=== PATIENT | male | born 1975 | race Caucasian/White ===

== ENCOUNTER 2020-06-19 21:17 | Emergency (ER) | payer OTHER ==
--- OUTSIDE RECORDS SUMMARY | 2020-06-19 21:21 | XMS REPORT ---
:1975 Author Organization [facility] Address [address] [place] [address] Care Team Providers Name Role Phone Grace Unavailable [phone] PROBLEMS Type Condition ICD9-CM CDZ37-OV Onset Condition SNOMED Code Notes Code Code Dates Status Problem Fever, unspecified R50.9 Active 039685676 fever cause Problem Bipolar depression F31.9 Active 981475026 Problem History of kidney Z87.442 Active 651443385 stones Problem Essential hypertension I10 Active 17105811 Problem Gastroesophageal reflux K21.9 Active 72865868 9 disease, esophagitis presence not specified Problem Periodontal disease K05.6 Active 5937760 Problem Unrefreshed by sleep G47.8 Active 934202652 Problem Attention deficit F98.8 Active 098853003 disorder, unspecified hyperactivity presence Problem Pure E78.00 Active 680601317 hypercholesterolemia Problem Depression with anxiety F41.8 Active 39987577 6 Problem GORDO (obstructive sleep G47.33 Active 19259306 apnea) Problem Anxiety F41.9 Active 95250092 ALLERGIES Allergen (clinical Drug/Non Drug Reaction Allergy Type Onset Date S tatus drug ingredient) Allergy documented on EMR PCN anaphylaxis Drug Allergy Inactive ENCOUNTERS from 1975 to 2020-04-27 Encounter Location Date Provider Diagnosis [facility] [address] 12 Apr, 2020 Marga [facility] [address] IMMUNIZATIONS No Information SOCIAL HISTORY Tobacco Use: Social History Observation Description Date Details (start date - stop date) Current Smoker Sex Assigned At : Social History Observation Description Sex Assigned At Unknown Alcohol Screen Question Answer Notes Did you have a drink containing alcohol in the past Yes year? Points 1 Interpretation Negative How often did you have a drink containing alcohol in Monthly or less (1 point) the past year? Tobacco Use/Smoking Question Answer Notes Are you a current smoker Tobacco use other than smoking: Question Answer Notes Are you an other tobacco user? Yes REASON FOR REFERRAL No Information VITAL SIGNS No information MEDICATIONS Medication SIG (Take, Route, Start Date End Date Status Frequency, Duration) HydrOXYzine HCl 50 MG 1 tablet as needed Orally May, Active every 8 hrs for 90 days Lisinopril 20 MG 1 tablet Orally Twice a day May, Active for 90 days Omeprazole 40 MG 1 capsule 30 minutes before Aug, Active morning meal Orally Once a day for 90 days BuPROPion HCl ER (XL) 300 MG take 1 tablet by mouth Active every day Oral Once a day for 90 days PROCEDURES No Information RESULTS No Results REASON FOR VISIT Med change MEDICAL (GENERAL) HISTORY Type Description Date Medical History Essential hypertension Medical History Attention deficit disorder, unspecified hyperactivity presence Medical History Depression with anxiety Medical History History of kidney stones Surgical History No Surgical history information Goals Section No Information Health Concerns No Information MEDICAL EQUIPMENT No Information MENTAL STATUS No Information FUNCTIONAL STATUS No Information ASSESSMENTS No Information PLAN OF TREATMENT Medication Medication Name Sig Start Date Stop Date HydrOXYzine HCl 50 MG 1 tablet as needed Orally every 8 May, hrs for 90 days Omeprazole 40 MG 1 capsule 30 minutes before Aug, morning meal Orally Once a day for 90 days BuPROPion HCl ER (XL) 300 MG take 1 tablet by mouth every day Oral Once a day for 90 days Lisinopril 20 MG 1 tablet Orally Twice a day for May, 90 days Insurance Providers Payer Name Payer Payer Insured Patient Coverage Coverage Address Phone Name Relationship to Start Date End Date Insured MEDICAID [phone] Paul Shin [place] [id number] [facility] [address] [place] [phone] Paul Shin [place] [id number] [address] [facility] [phone]
--- OUTSIDE RECORDS SUMMARY | 2020-06-19 21:21 | XMS REPORT | Summary of Care ---
:1975 Author Organization [facility] Address [address] [place] [address] Care Team Providers Name Role Phone Marga Edwards Primary Care Provider Reason for Visit Reason Comments New Patient cyst (Routine) Status Reason Specialty Diagnoses / Referred By Referred To Procedures Contact Contact Authorized CRISTIAN-SURGERY / Diagnoses Skin lesion of right arm Lesion of skin of scalp Marga Edwards, James Procedures CONSULT/REFERRAL GENERAL SURGERY [address] [place] [address] MD Gia KURT [address] [place] [address] Phone: Carolyne Hardy [phone] Fax: Encounter Details Date Type Department Care Team Description 04/28/2020 Office Visit [facility] General Gia Trujillo Ski n lesion of left upper extremity (Primary Dx); Surgery- [facility] Sebaceous cyst [address] [facility] [address] [place] [address] [address] [place], [place] [address] [address] [place], [place] [phone] [address] Allergies Active Allergy Reactions Severity Noted Date Comments Penicillins Anaphylaxis 04/28/2020 documented as of this encounter (statuses as of 04/29/2020) Medications Medication Sig Dispensed Refills Start Date End Date Status hydrOXYzine 50 mg tablet 0 04/20/2020 Active buPROPion XL 300 mg 24 hr tablet 0 020 Active omeprazole 40 mg capsule 0 04/20/2020 Active documented as of this encounter (statuses as of 04/29/2020) Active Problems No known active problemsdocumented as of this encounter (statuses as of 04/29/2020) Social History Tobacco Use Types Packs/Day Years Used Date Never Assessed Sex Assigned at Date Recorded Not on file COVID-19 Exposure Response Date Recorded In the last month, have you been in contact with No / Unsure 04/28/2020 3:44 PM CDT someone who was confirmed or suspected to have Coronavirus / COVID-19? documented as of this encounter Last Filed Vital Signs Vital Sign Reading Time Taken Comments Blood Pressure 160/97 04/28/2020 3:53 PM CDT Pulse 80 04/28/2020 3:53 PM CDT Temperature 36.8 C (98.3 F) 04/28/2020 3:53 PM CDT Respiratory Rate 20 04/28/2020 3:45 PM CDT Oxygen Saturation 98% 04/28/2020 3:45 PM CDT Inhaled Oxygen Concentration - - Weight 126.6 kg (279 lb) 04/28/2020 3:45 PM CDT Height 172.7 cm (5' 8") 04/28/2020 3:45 PM CDT Body Mass Index 42.42 04/28/2020 3:45 PM CDT documented in this encounter Progress Notes Elli Bernabe, - 04/28/2020 4:00 PM CDT [facility] Surgery Clinic Note Chief Complaint: Cysts on head & back HPI: Paul Shin is a 44 year old male with PMH of HTN, ADHD, anxiety & GERD presenting to the clinicfor one mass on his head, one mass on the posterior aspect of his left neck & one mass on the left aspect of the back for at least 5 years. Patient states that they have gradually gotten bigger over the years. Patient denies any pain, trauma, drainage or signs of infection. Patient also has a lesion on the anterior aspect of his left shoulder. REVIEW OF SYSTEMS (-)=Negative,(+)=Positive Constitutional: negative Skin: Denies erythema, pruritus, drainage, pain HEENT: negative Cardio: negative Resp:negative GI: negative : negative ZOHAIB: negative Neuro: negative Psych: negative Hem/Lymphatic: negative Past Medical History: HTN ADHD Anxiety GERD Nystagmus Astigmatism Past Surgical History: No past surgical history on file. Family History: Lung cancer -- Mother diagnosed at age 55 Social History: Social History Socioeconomic History Marital status: Spouse name: Not on file Number of children: Not on file Years of education: Not on file Highest education level: Not on file Occupational History Not on file Social Needs Financial resource strain: Not on file Food insecurity Worry: Not on file Inability: Not on file Transportation needs Medical: Not on file Non-medical: Not on file Tobacco Use Smoking status: Not on file Substance and Sexual Activity Alcohol use: Not on file Drug use: Not on file Sexual activity: Not on file Lifestyle Physical activity Days per week: Not on file Minutes per session: Not on file Stress: Not on file Relationships Social connections Talks on phone: Not on file Gets together: Not on file Attends synagogue service: Not on file Active member of club or organization: Not on file Attends meetings of clubs or organizations: Not on file Relationship status: Not on file Intimate partner violence Fear of current or ex partner: Not on file Emotionally abused: Not on file Physically abused: Not on file Forced sexual activity: Not on file Other Topics Concern Not on file Social History Narrative Not on file Medications: Bupropion XL 300mg QD Lisinopril 20mg BID Omeprazole Hydroxyzine PRN Allergy: Allergies Allergen Reactions Pcn [Penicillins] Anaphylaxis Physical Exam: Temp: [36.7 C (98.1 F)] Pulse: [95] Resp: [20] BP: (158)/(107) Constitutional: Well developed, no acute distress General: A & O x 3 to person, place and situation HEENT: no scleral icterus, moist mucous membranes Respiratory: clear to auscultation bilaterally Cardio: regular rate and rhythm Abdomen: soft, ND Extremities: DP and PT pulses 3+ bilaterally. No edema. Skin: no rashes, one 2.5cm x 2.0cm mass noted on head, one 1.0cm x 0.5cm mass noted on posterior aspect of left neck, and one 2.5cm x 2cm mass noted on left aspect of back. All 3 masses are blanchable,non-mobile and non-tender. One 2cm x 1cm lesion with irregular borders but no ulceration or drainagenoted on anterior aspect of left shoulder. Labs: Labs: CBC BMP PT/INR No results found for: WBC No results found for: NA No results found for: PT No results found for: RBC No results found for: K No results found for: PTINR No results found for: PLT No results found for: CA No results found for: HGB No results found for: CL aPTT No results found for: HCT No results found for: BUN No results found for: APTTPAT No results found for: CREAT Microbiology: None Radiology: No results found. Pathology: None Hospital Problem list: There are no active problems to display for this patient. Procedure Note Date of Surgery: 04/28/2020 Faculty physician: Gia Trujillo MD Resident physician: Elli Bernabe DO The patient was seated on the clinic chair. The left anterior shoulder was prepped and draped in sterile fashion. 8 cc of 1% Lidocaine with epinephrine was infiltrated around the biopsy site. A 5mm punch biopsy was taken from the inferior aspect of the lesion, with care to include normal skin within the border. At that time the patient felt light headed and was moved to the clinic recliner. After several minutes he no longer felt light headed. A bandage was placed over the punch biopsy site which was no longer bleeding and the specimen sent for surgical pathology. Assessment & Plan: Paul Shin is a 44 year old male with a PMH of HTN, ADHD, GERD and anxiety presenting to the clinic for 3 blanchable, non-mobile, nontender masses ( 2.5cm x 2.0cm mass noted on head, one 1.0cm x 0.5cm mass noted on posterior aspect of left neck, and one 2.5cm x 2cm mass noted on left aspect of back)and one 2cm x 1cm lesion on the anterior aspect of the left shoulder. 1. 5mm punch biopsy of anterior left shoulder lesion -- send to pathology 2. Keep site of punch biopsy clean with soap & water 3. Schedule patient for operative excision of head, neck and back masses, and excision of left anterior shoulder lesion pending pathology results Patient seen and discussed with faculty, Dr. Trujillo & Dr. Bernabe. EM Dominguez-S2 I personally examined the patient on 04/28/2020 and have verified the PR3 medical student documentation and/or findings, including the history, physical exam, and medical decision making. Additionally,I have personally performed or re-performed the physical exam and medical decision making activitiesof this patient's evaluation and management service. Elli Bernabe, General Surgery PGY-2 Attending Attestation: I personally evaluated and examined the patient on 04/29/[address] Bernabe's note as written. I actively participated in the decision-making process. Please see the resident's note for additional details. 44 YEAR-OLD M who presents with multiple skin lesions. He has 3 lesions (head, neck, back) which appear to epidermal inclusion cysts. He also has a skin lesion to his upper left arm which appears to be a skin cancer. A punch biopsy of the skin lesion to the arm was performed in officetoday. The patient has been scheduled for surgery for removal of all skin lesions, further surgical planning of excision of the left upper arm lesion will be based on pathology results. I will call thepatient with the pathology results when available and to further discuss the surgical plan for the arm lesion. Gia Trujillo M.D. 04/29/2020 10:21 ELTAZayra mckeon RN - 04/28/2020 4:00 PM CDTEric Aleida is a 44 year old male comes to clinic independent in ambulation for cyst. Pt comes alone. Pt in NAD w/ pain reported 0/10. Pt preferred language is Lithuanian. Pt. denies fall in last 12 months. Allergies and medications reviewed and updated. documented in this encounter Plan of Treatment Name Type Priority Associated Diagnoses Date/Ti nd SURGICAL PATHOLOGY EXAM LAB MAR Skin lesion of le ft 04/28/2020 4:54 PM CDT upper extremity Health Maintenance Due Date Last Done Comments Depression Screening 1986 DTaP,Tdap,and Td Vaccines (1 - 1993 Tdap) INFLUENZA VACCINE (#1) 2020 Colorectal Cancer Screening 2024 PNEUMOCOCCAL 0-64 YEARS COMBINED Aged Out No longer eligible based on SERIES patient's age to complete this topic documented as of this encounter Results Not on filedocumented in this encounter Visit Diagnoses Diagnosis Skin lesion of left upper extremity - Pr imary Sebaceous cyst documented in this encounter Insurance Payer Benefit Plan / Subscriber ID Effective Dates Phone Addre ss Type Group [facility] [id number] 2020-[employer] Medicaid COMM PLAN - t MANAGED MEDICAID documented as of this encounter
--- OUTSIDE RECORDS SUMMARY | 2020-06-19 21:21 | XMS REPORT | Summary of Care ---
:1975 Author Organization [facility] Address [address] [place] [address] Care Team Providers Name Role Phone Marga Edwards Primary Care Provider Reason for Visit Reason Comments New Patient cyst (Routine) Status Reason Specialty Diagnoses / Referred By Referred To Procedures Contact Contact Authorized CRISTIAN-SURGERY / Diagnoses Skin lesion of right arm Lesion of skin of scalp Marga Edwards, James Procedures CONSULT/REFERRAL GENERAL SURGERY [address] [place] [address] MD Gia KURT [address] [place] [address] [address] Phone: Carolyne Hardy [phone] Fax: Encounter Details Date Type Department Care Team Description 04/28/2020 Office Visit [facility] General Gia Trujillo Ski n lesion of left upper extremity (Primary Dx); Surgery- [facility] [address] [facility] [address] [place] [address] [address] [place], [place] [address] [address] [place], [place] [phone] [address] Allergies Active Allergy Reactions Severity Noted [...] Elli Bernabe, - 04/28/2020 4:00 PM CDT [facility] Surgery Clinic Note Chief Complaint: [...] file Gets together: Not on file Attends alevism service: Not on file Active member of [...] patient on 04/28/2020 and have verified the AR3 medical student documentation and/or findings, including the [...] pain reported 0/10. Pt preferred language is Peruvian. Pt. denies fall in last 12 months. [...] Effective Dates Phone Addre ss Type Group [facility] [id number] 2020-[employer] Medicaid COMM PLAN - t MANAGED MEDICAID documented as of this encounter
--- OUTSIDE RECORDS SUMMARY | 2020-06-19 21:21 | XMS REPORT | Summary of Care ---
:1975 Author Organization [facility] - Health Address [address] [place] [address] Care Team Providers Name Role Phone Marga Edwards Primary Care Provider Encounter Details Date Type Department Care Team Description 04/28/2020 Orders Only [facility] Doctor Unassigned, No [address] [facility] [place] [address] [address] [place] [address] Allergies Not on Filedocumented as of this encounter (statuses as of 04/28/2020) Medications Not on filedocumented as of this encounter (statuses as of 04/28/2020) Active Problems Not on filedocumented as of this encounter (statuses as of 04/28/2020) Social History Tobacco Use Types Packs/Day Years Used Date Never Assessed Sex Assigned at Date Recorded Not on file documented as of this encounter Last Filed Vital Signs Not on filedocumented in this encounter Plan of Treatment Date Type Specialty Care Team Description 04/28/2020 Office Visit Surgery Gia Trujillo MD [address] [place] [address] [place] [address] [phone] Health Maintenance Due Date Last Done Comments Depression Screening 1986 DTaP,Tdap,and Td Vaccines (1 - 1993 Tdap) INFLUENZA VACCINE (#1) 2020 Colorectal Cancer Screening 2024 PNEUMOCOCCAL 0-64 YEARS COMBINED Aged Out No longer eligible based on SERIES patient's age to complete this topic documented as of this encounter Procedures Procedure Name Priority Date/Time Associated Diagnosis Comme nts ASSIGNMENT OF BENEFITS Routine 04/28/2020 3:27 PM CDT documented in this encounter Results Not on filedocumented in this encounter Insurance Payer Benefit Plan / Subscriber ID Effective Dates Phone Addre ss Type Group [facility] [id number] 2020-[employer] Medicaid COMM PLAN - t MANAGED MEDICAID documented as of this encounter
--- OUTSIDE RECORDS SUMMARY | 2020-06-19 21:22 | XMS REPORT | Summary of Care ---
:1975 Author Organization [facility] - Health Address [address] [place] [address] Care Team Providers Name Role Phone Marga Edwards Primary Care Provider Encounter Details Date Type Department Care Team Description 05/25/2020 Orders Only [facility] Doctor Unassigned, No [address] [facility] [place] [address] [address] [place] [address] Allergies Active Allergy Reactions Severity Noted Date Comments Penicillins Anaphylaxis 04/28/2020 documented as of this encounter (statuses as of 05/25/2020) Medications Medication Sig Dispensed Refills Start Date End Date Status hydrOXYzine 50 mg 0 04/20/2020 A ctive tablet buPROPion XL 300 mg 24 0 04/20/2020 Active hr tablet omeprazole 40 mg 0 04/20/2020 Ac tive capsule lisinopriL 40 mg tablet Take 40 mg by 0 Active mouth daily. documented as of this encounter (statuses as of 05/25/2020) Active Problems Problem Noted Date Skin lesion of left upper extremity 05/05/2020 Overview: Added automatically from request for jermaine avril [id number] Sebaceous cyst 05/05/2020 Overview: Added automatically from request for jermaine avril [id number] documented as of this encounter (statuses as of 05/25/2020) Social History Tobacco Use Types Packs/Day Years Used Date Never Smoker Smokeless Tobacco: Current User Sex Assigned at Date Recorded Not on file COVID-19 Exposure Response Date Recorded In the last month, have you been in contact with No / Unsure 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 documented as of this encounter Last Filed Vital Signs Not on filedocumented in this encounter Plan of Treatment Date Type Specialty Care Team Description 05/25/2020 Laboratory Only Clinical Medical Maggie Trujillo MD [address] [facility] [address] [place], [place] [address] Laboratory Only, Adc Test 05/26/2020 Hospital Encounter Surgery Gia Trujillo, Skin lesion of left MD upper extremity [address] [facility] [address] [place], [place] [address] 05/26/2020 Anesthesia Event Surgery Mike White, Quique [address] [phone] 05/26/2020 Surgery Surgery Gia Trujillo, MASS ISACC HARRINGTON MD [address] [facility] [address] [place], [place] [phone] Health Maintenance Due Date Last Done Comments PNEUMOCOCCAL 0-64 YEARS COMBINED SERIES (1 of 3 - 1980 PCV13) Depression Screening 1986 DTaP,Tdap,and Td Vaccines (1 - Tdap) 1993 INFLUENZA VACCINE (#1) 2020 Colorectal Cancer Screening 2024 documented as of this encounter Procedures Procedure Name Priority Date/Time Associated Diagnosis Comme nts ASSIGNMENT OF BENEFITS Routine 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
--- OUTSIDE RECORDS SUMMARY | 2020-06-19 21:22 | XMS REPORT | Summary of Care ---
:1975 Author Organization [facility] Address [address] [place] [address] Care Team Providers Name Role Phone Marga Edwards Primary Care Provider Reason for Visit Reason Comments New Patient cyst (Routine) Status Reason Specialty Diagnoses / Referred By Referred To Procedures Contact Contact Authorized CRISTIAN-SURGERY / Diagnoses Skin lesion of right arm Lesion of skin of scalp Marga Edwards, James Procedures CONSULT/REFERRAL GENERAL SURGERY [address] [place] [address] MD Gia KURT [phone] [id number] [address] Phone: Carolyne Hardy [phone] Fax: Encounter Details Date Type Department Care Team Description 04/28/2020 Office Visit [facility] General Gia Trujillo Ski n lesion of left upper extremity (Primary Dx); Surgery- [facility] Sebaceous cyst [facility] [address] [place] [address] [address] [place], [place] [address] [address] [place], [place] [phone] Allergies Active Allergy Reactions Severity Noted Date Comments Penicillins Anaphylaxis 04/28/2020 documented as of this encounter (statuses as of 05/05/2020) Medications Medication Sig Dispensed Refills Start Date End Date Status hydrOXYzine 50 mg tablet 0 04/20/2020 Active buPROPion XL 300 mg 24 hr tablet 0 020 Active omeprazole 40 mg capsule 0 04/20/2020 Active documented as of this encounter (statuses as of 05/05/2020) Active Problems No known active problemsdocumented as of this encounter (statuses as of 05/05/2020) Social History Tobacco Use Types Packs/Day Years [...] Elli Bernabe, - 04/28/2020 4:00 PM CDT [facility] Surgery Clinic Note Chief Complaint: Cysts on [...] file Gets together: Not on file Attends mandaen service: Not on file Active member of [...] patient on 04/28/2020 and have verified the CA3 medical student documentation and/or findings, including the [...] arm lesion. Gia Trujillo M.D. 04/29/2020 10:21 Zayra Mazariegos RN - 04/28/2020 4:00 PM CDTEric Aleida is a 44 year old male comes to clinic independent in ambulation for cyst. Pt comes alone. Pt in NAD w/ pain reported 0/10. Pt preferred language is [place]. Pt. denies fall in last 12 months. Allergies and medications reviewed and updated. documented in this encounter Miscellaneous Notes Addendum Note - Zayra Saavedra RN - 04/28/2020 4:00 PM CDT Addended by: ZAYRA SAAVEDRA RN on: 05/05/2020 11:35 AM Modules accepted: Orders, SmartSet documented in this encounter Plan of Treatment Health Maintenance Due Date Last Done Comments Depression Screening 1986 DTaP,Tdap,and Td Vaccines (1 - 1993 Tdap) INFLUENZA VACCINE (#1) 2020 Colorectal Cancer Screening 2024 PNEUMOCOCCAL 0-64 YEARS COMBINED Aged Out No longer eligible based on SERIES patient's age to complete this topic documented as of this encounter Procedures Procedure Name Priority Date/Time Associated Diagnosis Comme nts SURGICAL PATHOLOGY MAR 04/28/2020 4:54 PM Skin lesion of left Results for this EXAM CDT upper extremity procedure ar e in the results section. documented in this encounter Results SURGICAL PATHOLOGY EXAM (04/28/2020 4:54 PM CDT) Pathologist Sig nature Case Report Surgical Pathology Case: [id number] [facility] Authorizing Provider: Gia Gonzalez MD Collected: 04/28/2020 [id number] SERVICES Ordering [facility]: [facility]: [facility]28/[facility]: Matt Lord MD Specimen: SKIN, ARM, LE FT, ABOVE ELBOW Final Diagnosis [facility] Zacharyi ramin signed A. SKIN, LEFT ARM ABOVE ELBOW, PUNCH BIOPSY: SERVICES by Risa, - BASAL CELL CARCINOMA MD Matt on - BIOPSY EDGES ARE NOT INVOLVED 05/01/2020 at 11:15 AM Rosas Marie MD 05/01/2020 7:49 AM I have personally reviewed a ll specimens/slides and agree with all statements made by residents, fellows or pathologist assistants whose name(s) may appear on this report. Clinical Left upper arm [facility] Information skin lesion SERVICES Gross Description Specimen A is received in [facility] labeled with the patient's name, number, "arm, left, above elbow" and consists of a single pale meeks, hairbearing skin punch (0.5 cm in diameter x 0.6 cm in length). [facility] The specimen is inked blue at the resection margin and bisected to reveal pale-meeks cut surfaces. The specimen is submitted entirely, cut surface down, in A1. SERVICES Cate Bush, PathA1 Student EM Sarkar (ASCP) Embedded Images [facility] SERVICES Specimen Tissue - SKIN Performing Organization Address City/State/Zipcode Phone Number [facility] CLIA: [id number] [place] [address] [place] [address] documented in this encounter Visit Diagnoses Diagnosis Skin lesion of left upper extremity - Pr imary Sebaceous cyst documented in this encounter Insurance Payer Benefit Plan / Subscriber ID Effective Dates Phone Addre ss Type Group [facility] [id number] 2020-[employer] [employer] COMM PLAN - t MANAGED MEDICAID documented as of this encounter
--- OUTSIDE RECORDS SUMMARY | 2020-06-19 21:22 | XMS REPORT | Summary of Care ---
:1975 Author Organization [facility] Address [address] [place] [address] Care Team Providers Name Role Phone Marga Edwards Primary Care Provider Reason for Visit Reason Comments Pre-Op Exam Auth/Cert Status Reason Specialty Diagnoses / Referred By Referred To Procedures Contact Contact Clinical Medical Procedures Adc Lab Laboratory [facility]-19 (ID NOW [address] [facility] RAPID TESTING) [place] [address] Encounter Details Date Type Department Care Team Description 05/25/2020 Laboratory Only [facility] Gia Trujillo MD [address] [facility] [address] [place] [address] Preop testing Phlebotomy Only, Adc Test (Primary Dx) Lab-[address] [address] Allergies Active Allergy Reactions Severity Noted Date [...] Overview: Added automatically from request for jermaine mackenzie [id number] Sebaceous cyst 05/05/2020 Overview: Added automatically from request for jermaine mackenzie [id number] documented as of this encounter (statuses as of 05/25/2020) Social History Tobacco Use Types Packs/Day Years Used Date Never Smoker Smokeless Tobacco: Current User Sex Assigned at Date Recorded Not on file COVID-19 Exposure Response Date Recorded In the last month, have you been in contact with No / Unsure 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 documented as of this encounter Last Filed Vital Signs Not on filedocumented in this encounter Plan of Treatment Date Type Specialty Care Team Description 05/26/2020 Hospital Encounter Surgery Cami Trujillo MD Skin lesion of left [address] [facility] [address] [place], [place] [phone] 05/26/2020 Anesthesia Event Surgery Mike White C [address] [phone] 05/26/2020 Surgery Surgery Gia Trujillo MD MASS EXCISION [address] [facility] [address] [place], [place] [id number] Name Type Priority Associated Diagnoses Date/Ti me COVID-19 (ID NOW RAPID LAB Routine Preop testing 05/10 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) Name Type Priority Associated Diagnoses Order S chedule COVID-19 (ID NOW RAPID LAB Routine Preop testing Expe cted: 05/25/2020, TESTING) Expires: 2020 Health Maintenance Due Date Last Done Comments PNEUMOCOCCAL 0-64 YEARS COMBINED SERIES (1 of 3 - 1980 PCV13) Depression Screening 1986 DTaP,Tdap,and Td Vaccines (1 - Tdap) 1993 INFLUENZA VACCINE (#1) 2020 Colorectal Cancer Screening 2024 documented as of this encounter Results Not on filedocumented in this encounter Visit Diagnoses Diagnosis Skin lesion of left upper extremity Sebaceous cyst Preop testing - Primary Preoperative examination, unspecified Skin lesion of left upper extremity Sebaceous cyst documented in this encounter Additional Health Concerns Infection Onset Date Last Indicated Resolved Time COVID-19 Rule Out 05/25/2020 05/25/2020 documented as of this encounter Insurance Payer Benefit Plan / Subscriber ID Effective Dates Phone Addre ss Type Group [facility] [id number] 2020-[facility] Medicaid COMM PLAN - t MANAGED MEDICAID documented as of this encounter
--- OUTSIDE RECORDS SUMMARY | 2020-06-19 21:22 | XMS REPORT | Summary of Care ---
:1975 Author Organization [facility] - [facility] Address [address] [place] [id number] Care Team Providers Name Role Phone Marga Edwards Primary Care Provider Reason for Referral Other (Routine) Status Reason Specialty Diagnoses / Referred By Referred To Procedures Contact Contact New Request Diagnoses Skin lesion of left upper extremity Gia Trujillo, Gia Trujillo, Procedures Discharge Follow-up: Specialty Provider GIA TRUJILLO; Other - See Comment (06/08/2020) MD WU [address] [facility] [address] [place] [address] [address] [place] [address] Phone: Fax: Reason for Visit Auth/Cert Status Reason Specialty Diagnoses / Procedures Referred By C tarah Referred To Contact Surgery Diagnoses Disorder of the skin and subcutaneous tissue, unspecified Sebaceous cyst Skin lesion of left upper extremity [L98.9] Sebaceous cyst [L72.3] Adc Pre/Pacu/Post Procedures [facility] CODING HELP W[place] EXCISION TUMOR SOFT TISS FACE/SCALP SUBQ 2+CM [place] EXCISION TUMOR SOFT TISSUE BACK/FLANK SUBQ 3+CM [place] EXC TUMOR SOFT TISSUE UPPER ARM/ELBOW SUBQ 3+CM [place] EXC TUMOR SOFT TISSUE NECK/ANT THORAX SUBQ <3CM [address] [place] [address] MASS EXCISION - [place] EXCISION TUMOR SOFT TISS FACE/SCALP SUBQ 2+CM [address] - [place] EXCISION TUMOR SOFT TISSUE BACK/FLANK SUBQ 3+CM [address] - [place] EXC TUMOR SOFT TISSUE UPPER ARM/ELBOW SUBQ 3+CM Drive [address] - [place] EXC TUMOR SOFT TISSUE NEC K/ANT THORAX SUBQ <3CM [place] [address] Phone: Fax: Encounter Details Date Type Department Care Team Description 05/26/2020 Hospital Encounter [facility] Russell Trujillo, Skin les ion of left [facility] MD Gia upper extremity [address] [facility] [address] [place] [address] [address] [place] [address] [phone] Allergies Active Allergy Reactions Severity Noted Date Comments Penicillins Anaphylaxis 04/28/2020 documented as of this encounter (statuses as of 05/26/2020) Medications Medication Sig Dispensed Refills Start Date End Date Status hydrOXYzine 50 mg 0 04/20/2020 A ctive tablet buPROPion XL 300 mg 24 0 04/20/2020 Active hr tablet omeprazole 40 mg 0 04/20/2020 Ac tive capsule lisinopriL 40 mg tablet Take 40 mg by 0 Active mouth daily. acetaminophen (TYLENOL Take 1 tablet 30 tablet 0 05/26/2020 Active EXTRA STRENGTH) 500 mg by mouth every tabletIndications: Skin 6 (six) hours lesion of left upper as needed for extremity Pain. ibuprofen 600 mg Take 1 tablet 6 tablet 0 05/26/2020 05/28/20 Active tabletIndications: Skin by mouth 3 lesion of left upper (three) times extremity daily with meals for 2 days. traMADoL 50 mg Take 1 tablet 6 tablet 0 05/26/2020 06/02/2020 Active tabletIndications: by mouth every acute pain 6 (six) hours as needed for Pain (scale 7-10) for up to 7 days. Indications: acute pain documented as of this encounter (statuses as of 05/26/2020) Active Problems Problem Noted Date Skin lesion of left upper extremity 05/05/2020 Overview: Added automatically from request for jermaine avril [id number] Sebaceous cyst 05/05/2020 Overview: Added automatically from request for jermaine avril [id number] documented as of this encounter (statuses as of 05/26/2020) Social History Tobacco Use Types Packs/Day Years Used Date Never Smoker Smokeless Tobacco: Current User Tobacco Cessation: Ready to Quit: No; Co unseling Given: No Sex Assigned at Date Recorded Not on file COVID-19 Exposure Response Date Recorded In the last month, have you been in contact with No / Unsure 05/25/2020 12:55 PM PACKING ROOM SUPERVISOR someone who was confirmed or suspected to have Coronavirus / COVID-19? documented as of this encounter Last Filed Vital Signs Vital Sign Reading Time Taken Comments Blood Pressure 135/72 05/26/2020 12:39 PM PACKING ROOM SUPERVISOR Pulse 76 05/26/2020 12:39 PM PACKING ROOM SUPERVISOR Temperature 36 C (96.8 F) 05/26/2020 11:48 AM PACKING ROOM SUPERVISOR Respiratory Rate 12 05/26/2020 12:39 PM PACKING ROOM SUPERVISOR Oxygen Saturation 95% 05/26/2020 12:39 PM PACKING ROOM SUPERVISOR Inhaled Oxygen Concentration - - Weight 121.6 kg (268 lb) 05/22/2020 11:30 AM PACKING ROOM SUPERVISOR Height 182.9 cm (6') 05/22/2020 11:30 AM PACKING ROOM SUPERVISOR Body Mass Index 36.35 05/22/2020 11:30 AM PACKING ROOM SUPERVISOR documented in this encounter Discharge Instructions InstructionsAdalberto Sprague RN - 05/26/2020 Patient Discharge Instructions Discharge date: 05/26/2020 Procedure(s): Procedure(s): MASS EXCISION Discharge Orders Regular Diet; Texture: Regular. Texture Regular. Diabetic: No Discharge Condition - Discharge Condition: GOOD Discharge Activity Discharge Activity: As Tolerated 6 weeks Discharge Activity: No Heavy Lifting or Strenuous Activity Discharge Follow-up: Specialty Provider GIA TRUJILLO; Other - See Comment (06/08/2020) To Provider: GIA TRUJILLO [[id number]] Patient's Preferred Location: [place] Discharge Disposition: HOME, ([facility]) When (Patients with risk for unplanned readmission score over 16 or those noted as Hospital Dependent should follow up within 7 days with PCP or primary DX specialist): Other - See Comment 06/08/2020 Discharge Instructions Order Comments: -- Keep dressings intact for 24 hours. Ok to shower after - wash wounds with soap and water and dry well. Cover with gauze and tape and change as necessary -- Take Tylenol and Ibuprofen for pain as prescribed -- For questions or concerns: call the [facility] at [phone] or toll free . -- Follow-up with Dr. Trujillo in clinic on 06/08/2020 No VTE Prophylaxis given- Patient low risk for VTE; Not ordered during hospitalization Follow instructions as indicated below: 1. The medication that was used will be acting in your system for the next 24 hours, so you might feel a little drowsy, with impaired judgment and or motor function. This feeling should go wear off. Because the medication is still in your system for the next 24 hours you SHOULD NOT: Drive a car, operate machinery or power tool. Drink any alcohol beverages (including beer or wine). Make any important decisions or sign any legal documents. 2. You should rest the remainder of the day and not engage in any physical activity. Move slowly today. After lying down, sit on the edge of the bed for a moment before standing. YOU ARE RESPONSIBLEFOR HAVING SOMEONE AT HOME WITH YOU DURING THE AFTERNOON AND NIGHT IMMEDIATELY FOLLOWING YOUR SURGERY. Patient should cough and deep breathe every 2-4 hours while awake to avoid respiratory complications. 4. Lifting: No lifting over 5 pounds 5. Weight: In general, sudden weight gains or losses should be reported to your provider. Cardiac patients should weigh daily and notify their provider for a weight gain of 3 pounds per day or 5 pounds per week. 6. Tobacco Avoidance: Follow recommendations below 7. Because the medications used could procedure some residual nausea and vomiting after you go home,you should eat lightly today, starting with clear liquids (broth, soft drinks, apple juice, jello) and toast or crackers, progressing to bland solid foods and then to your normal diet as tolerated, unle ss otherwise stated by your surgeon. If you get sick, wait a couple of hours and then begin to eat. After 24 hours the nausea should be gone. 8. You may experience some pain and your physician will advise you on what to take for discomfort. This should be taken as directed. If the pain is not relieved, contact your physician. You may alsohave a sore throat from the airway that was in place. You may uses lozenges, throat spray (such as C hloraseptic), or warm salt water gargles for symptomatic relief. 9. If you feel warm, take your temperature. If it is 101 degrees or above call your physician. 10. If you are unable to urinate within five hours after your procedure, call your physician. 11. The type of surgery performed will determine how much bleeding (if any) to expect. Normally, some spotting might occur. If your dressing pad becomes saturated, notify your physician. Elevate surgical site, if applicable, to reduced swelling and pain. 12. Wound/dressing care: See instructions Tips on preventing a surgical site infection.. Dont smoke. It is best to quit at least 30 days before surgery, but quitting after surgery is also helpful. If you are diabetic, keep your blood sugar well controlled. WASH YOUR HANDS. Keep your wound clean and remember to wash your hands before and after contact with the area. All health care workers should also wash their hands or use an alcohol based hand rub prior to examining you. If antibiotics are prescribed, take them as directed. Finish the entire course of antibiotics. Call your doctor if you have signs of infection: ? Increased tenderness at the surgical site ? Red streaks or increased redness of the area ? Bad-smelling discharge from the incision ? Fever of 101F or higher ? General tired feeling that doesnt improve 13. Other discharge instructions: None 14. Special Instructions: Take Home Medications These are medications ordered for you by your healthcare provider. Do not take any other medications or supplements unless advised by your healthcare provider. Current Discharge Medication List START taking these medications Details acetaminophen (TYLENOL EXTRA STRENGTH) 500 mg tablet Take 1 tablet by mouth every 6 (six) hours as needed for Pain. Qty: 30 tablet, Refills: 0 Associated Diagnoses: Skin lesion of left upper extremity ibuprofen 600 mg tablet Take 1 tablet by mouth 3 (three) times daily with meals for 2 days. Qty: 6 tablet, Refills: 0 Associated Diagnoses: Skin lesion of left upper extremity traMADoL 50 mg tablet Take 1 tablet by mouth every 6 (six) hours as needed for Pain (scale 7-10) forup to 7 days. Indications: acute pain Qty: 6 tablet, Refills: 0 Associated Diagnoses: Skin lesion of left upper extremity CONTINUE these medications which have NOT CHANGED Details lisinopriL 40 mg tablet Take 40 mg by mouth daily. buPROPion XL 300 mg 24 hr tablet hydrOXYzine 50 mg tablet omeprazole 40 mg capsule Follow-up appointments: Your follow up appointment with your surgeon has been made. For questions regarding follow-up instructions call the [facility] Hotline at For worsening symptoms/changing condition/problems or questions: Dr Trujillo [phone] Non-emergency/urgent: Call the [facility] Hotline at Emergency: Go to the closest emergency room or call 911 If you receive the patient satisfaction survey by mail please complete and return and let us know how we are doing. TOBACCO AVOIDANCE Exposure to tobacco either from smoking or from second hand (environmental) smoke or smokeless tobacco (snuff) is damaging to your health. This information is to encourage everyone to avoid tobacco exposure. It is recommended that you: ? If you smoke or use smokeless tobacco, we encourage you to quit. ? If you have already quit smoking, continue your good work! ? If you do not smoke or use smokeless tobacco, do not start. ? Avoid secondhand smoke. Additional Resources You may want to contact these organizations for further information on smoking and how to quit. [place] [employer], http://www.lungusa.org/stop-smoking/ [place] [employer], http://www.cancer.org/Healthy/StayAwayfromTobacco/index [place] [employer], http://www.heart.org/HEARTORG/GettingHealthy/QuitSmoking/Quit-Smoking_[facility] _001085_SubHomePage.jsp documented in this encounter H&P Notes Zaheer Armijo MD - 05/26/2020 7:39 AM CST [facility] Surgery Pre-Op Note/Updated History and Physical: --patient seen and examined in preop in well condition --no changes from H&P from clinic visit dated 04/28/2020 and linked below -- Allergic to penicillin --to OR for excision of skin lesions --the procedure was discussed with the patient, including risks, benefits, and alternatives, and allquestions answered --consent signed and in chart Zaheer Ram MD General Surgery Resident [facility] Surgery Clinic Note Chief Complaint: Cysts on [...] Anxiety GERD Nystagmus Astigmatism Past Surgical History: History reviewed. No pertinent surgical history. Family History: Lung cancer -- Mother diagnosed [...] Not on file Tobacco Use Smoking status: Never Smoker Smokeless tobacco: Current User Substance and Sexual Activity Alcohol use: Not on file Drug use: Not on file Sexual activity: Not on file Lifestyle Physical activity Days per week: Not on file Minutes per session: Not on file Stress: Not on file Relationships Social connections Talks on phone: Not on file Gets together: Not on file Attends advent service: Not on file Active member of [...] Reactions Pcn [Penicillins] Anaphylaxis Physical Exam: Temp: [36.3 C (97.4 F)] Pulse: [90] Resp: [16] Constitutional: Well developed, no acute distress General: [...] results found. Pathology: None Hospital Problem list: Patient Active Problem List Diagnosis Date Noted Skin lesion of left upper extremity 05/05/2020 Sebaceous cyst 05/05/2020 Procedure Note Date of Surgery: 04/28/2020 Faculty [...] patient on 04/28/2020 and have verified the [employer] medical student documentation and/or findings, including the [...] for the arm lesion. Gia Trujillo M.D. ING ROOM SUPERVISOR Associated attestation - Gia Trujillo MD - 05/26/2020 8:23 AM CSTAttending Attestation: I personally evaluated and examined the patient on 05/26/[address] Ram's note as written. I actively participated in the decision-making process. Please see the resident's note for additional details. Patient presents for excision of LUE BCCA, scalp lesion, and back lesion. He is also requesting excision of a RLE skin lesion. The lesion is scaly and appears to be a skin cancer. Will excise all 4 lesions today, the LUE and RLE lesions will be excised with 1 to 2 cm margins. The surgical consent has been updated to reflect the planned procedure for today. Gia Trujillo M.D. 05/26/2020 08:21documented in this encounter Miscellaneous Notes Brief Op Note - Zaheer Armijo MD - 05/26/2020 9:07 AM CSTBRIEF OPERATIVE NOTE Date of Surgery: 05/26/2020 Faculty physician: Gia Trujillo MD Resident physician: Zaheer Ram MD Anesthesia Type: general - GETA Pre-operative diagnosis: Basal cell carcinoma of the left upper arm, cysts of the: scalp(x1), posterior neck (x1), left upper back (x1). Potential basal cell carcinoma of the right lower leg Post-operative diagnosis: Basal cell carcinoma of the left upper arm, cysts of the: scalp(x1), posterior neck (x1), left upper back (x1). Potential basal cell carcinoma of the right lower leg Procedures: Wide local excision of basal cell carcinoma of the left upper arm and right lower leg. Excision of cysts of the scalp(x1), posterior neck (x1), left upper back (x1). Findings: Cysts with aspect of sebaceous cysts. Lesion on the left upper arm with pathologic diagnosis of basal cell carcinoma. Lesion on the right lower leg with aspect of basal cell carcinoma. Complications: None Specimens/Cultures: Specimen of WLE of the left upper arm (long suture is medial aspect, short suture is superior aspect); Specimen of WLE of the right lower leg (long suture is medial aspect, short suture is superior aspect); Capsule of cyst of the scalp, capsule of cyst of the posterior neck, capsule of cyst of left upper back Drains: none Specific Postop intructions: See orders Dispo: Outpatient. DC home Zaheer Ram MD General Surgery Resident [facility] documented in this encounter Plan of Treatment Date Type Specialty Care Team Description 06/08/2020 Office Visit Surgery Gia Trujillo MD [address] [facility] the [facility] [address] [place] [address] [phone] Name Type Priority Associated Diagnoses Order S chedule SURGICAL PATHOLOGY EXAM LAB Routine Rele ase Upon Ordering for 1 Occurrences s tarting 05/26/2020 Health Maintenance Due Date Last Done Comments PNEUMOCOCCAL 0-64 YEARS COMBINED SERIES (1 of 3 - 1980 PCV13) DTaP,Tdap,and Td Vaccines (1 - Tdap) 1993 INFLUENZA VACCINE (#1) 2020 Depression Screening 05/26/2021 05/26/2020 Colorectal Cancer Screening 2024 documented as of this encounter Results Not on filedocumented in this encounter Visit Diagnoses Diagnosis Skin lesion of left upper extremity - Pr imary Sebaceous cyst documented in this encounter Administered Medications Medication Order MAR Action Action Date Dose Rate Site [id number] Given 05/26/2020 11:28 AM PACKING ROOM SUPERVISOR 30 mL (SENSORCAINE W/EPINEPHRINE) 0.5 %-1:200,000 injection PRN, Starting 05/26/20 at 1128, Until Discontinued, Routine, Intra-op lidocaine 1% (PF) (XYLOCAINE) injection Given 05/26/2020 11:28 AM PACKING ROOM SUPERVISOR 30 mL PRN, Starting 05/26/20 at 1128, Until Discontinued, Routine, Intra-op sodium chloride 0.9 % irrigation solutio n Given 05/26/2020 11:28 AM PACKING ROOM SUPERVISOR 1,000 mL PRN, Starting 05/26/20 at 1128, Until Discontinued, Intra-op Medication Order MAR Action Action Date Dose Rate Site lactated ringers IV infusion New Bag 05/26/2020 7:41 AM PACKING ROOM SUPERVISOR 1,000 mL 42 mL/hr 1,000 mL at 42 mL/hr, 1,000 mL, IV Infusion, ONCE, 1 dose, 05/26/20 at 0745, Routine, DSU Pre-op documented in this encounter Insurance Payer Benefit Plan / Subscriber ID Effective Dates Phone Addre ss Type Group [facility] [id number] 2020-[facility] Medicaid COMM PLAN - t MANAGED MEDICAID documented as of this encounter
--- OUTSIDE RECORDS SUMMARY | 2020-06-19 21:23 | XMS REPORT | Summary of Care ---
:1975 Author Organization [facility] Address [address] [place] [address] Care Team Providers Name Role Phone Marga Edwards Primary Care Provider Reason for Visit Reason Comments Follow-up mass excision Other (Routine) Status Reason Specialty Diagnoses / Referred By Referred To Procedures Contact Contact Authorized Surgery Diagnoses Skin lesion of left upper extremity Gia Trujillo, Gia Trujillo, Procedures Discharge Follow-up: Specialty Provider GIA TRUJILLO; Other - See Comment (06/08/2020) MD WU 2240 [facility] 2[address] [facility] [address] [place] [address] Phone: Fax: Encounter Details Date Type Department Care Team Description 06/08/2020 Office Visit [facility] General Gia Trujillo Bas al cell carcinoma (BCC) of left upper extremity (Primary Dx); Surgery- Russell WU Basal cell carcinoma of lower extremity, right; [address] [place], [place] [address]iv e 2240 [facility] Pilar cyst; [address] [place] [address] Epidermal inclusion cyst; [place], [place] [address] Postoperative follow-up [address] [place], [place] [phone] [address] Allergies Active Allergy Reactions Severity Noted Date Comments Penicillins Anaphylaxis 04/28/2020 documented as of this encounter (statuses as of 06/09/2020) Medications Medication Sig Dispensed Refills Start Date End Date Status hydrOXYzine 50 mg tablet 0 04/20/2020 Active buPROPion XL 300 mg 24 0 04/20/2020 Active hr tablet omeprazole 40 mg capsule 0 04/20/2020 Active lisinopriL 40 mg tablet Take 40 mg by 0 Active mouth daily. acetaminophen (TYLENOL Take 1 tablet by 30 tablet 0 06/02/2020 Active EXTRA STRENGTH) 500 mg mouth every 6 tabletIndications: Skin (six) hours as lesion of left upper needed for Pain. extremity traMADoL 50 mg Take 1 tablet by 6 tablet 0 06/02/2020 Active tabletIndications: acute mouth every 6 pain (six) hours as needed for Pain (scale 7-10). Indications: acute pain documented as of this encounter (statuses as of 06/09/2020) Active Problems Problem Noted Date Obesity (BMI 30-39.9) 05/27/2020 Skin lesion of left upper extremity 05/05/2020 Overview: Added automatically from request for jermaine avril [id number] Sebaceous cyst 05/05/2020 Overview: Added automatically from request for jermaine avril [id number] documented as of this encounter (statuses as of 06/09/2020) Social History Tobacco Use Types Packs/Day Years Used Date Never Smoker Smokeless Tobacco: Current User Alcohol Use Drinks/Week oz/Week Comments Yes Sex Assigned at Date Recorded Not on file COVID-19 Exposure Response Date Recorded In the last month, have you been in contact with No / Unsure 06/08/2020 9:55 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 documented as of this encounter Last Filed Vital Signs Vital Sign Reading Time Taken Comments Blood Pressure 134/88 06/08/2020 10:29 AM CARRIAGE SETTER Pulse 78 06/08/2020 10:29 AM CARRIAGE SETTER Temperature - - Respiratory Rate 16 06/08/2020 10:29 AM CARRIAGE SETTER Oxygen Saturation - - Inhaled Oxygen Concentration - - Weight 124.9 kg (275 lb 6.4 oz) 06/08/2020 10:29 AM CARRIAGE SETTER Height 182.9 cm (6') 06/08/2020 10:29 AM CARRIAGE SETTER Body Mass Index 37.35 06/08/2020 10:29 AM CARRIAGE SETTER documented in this encounter Progress Notes Zaheer Armijo MD - 06/08/2020 10:00 AM CST [facility] Surgery Clinic Note 06/08/20 Chief Complaint: follow-up - s/p Wide local excision of basal cell carcinoma of theleftupper arm; Wide local excision of potential basal cell carcinoma of the rightlower leg. Excision of cysts ofthe scalp(x1), posterior neck (x1), left upper back (x1). HPI: Paul Shin is a 44 year old male with PMH of ADHD, HTN and kidney stones who is here for follow-up after his recent surgery on 05/26/2020 when he underwent excision of multiple skin lesions as follows: Wide local excision of basal cell carcinoma of theleftupper arm; Wide local excision of potential basal cell carcinoma of the rightlower leg. Excision of cysts of the scalp(x1), posterior neck (x1), left upper back (x1). Interval changes since discharge: -- path report with free margins of the BCC's; other lesions were inclusion cysts and a pylar cyst. -- Wounds healing well, no issues -- Pain well controlled, not taking any pain medications at this point REVIEW OF SYSTEMS (-)=Negative,(+)=Positive Constitutional: negative Skin: negative HEENT: negative Cardio: negative Resp:negative GI: negative : negative ZOHAIB: negative Neuro: negative Psych: negative Hem/Lymphatic: negative Past Medical History: Past Medical History: Diagnosis Date ADHD HTN (hypertension) Kidney stones Past Surgical History: Past Surgical History: Procedure Laterality Date MASS EXCISION N/A 05/26/2020 Surgeon: Gia Trujillo MD; Location: [facility] Family History: No family history on file. Social History: Social History Socioeconomic History Marital [...] file Gets together: Not on file Attends orthodoxy service: Not on file Active member of [...] Social History Narrative Not on file Medications: Current Outpatient Medications Medication Sig Dispense Refill acetaminophen (TYLENOL EXTRA STRENGTH) 500 mg tablet Take 1 tablet by mouth every 6 (six) hours as needed for Pain. 30 tablet 0 traMADoL 50 mg tablet Take 1 tablet by mouth every 6 (six) hours as needed for Pain (scale 7-10). Indications: acute pain 6 tablet 0 lisinopriL 40 mg tablet Take 40 mg by mouth daily. buPROPion XL 300 mg 24 hr tablet hydrOXYzine 50 mg tablet omeprazole 40 mg capsule No current facility-administered medications for this visit. Allergy: Allergies Allergen Reactions Pcn [Penicillins] Anaphylaxis Physical Exam: Pulse: [78] Resp: [16] BP: (134)/(88) Constitutional: Well developed, no acute distress General: A & O x 3 to person, place and situation HEENT: no scleral icterus, moist mucous membranes Respiratory: clear to auscultation bilaterally Cardio: regular rate and rhythm Abdomen: soft, ND, non tender. Extremities: DP and PT pulses 3+ bilaterally. No edema. Skin: wound well healed. Stitches removed and placed on Steri-Strips. Removed all but 3 sutures fromthe leg which is a light tight. Patient states his can remove them next week at home. Labs: No new labs Microbiology: N/a Radiology: No results found. Pathology: Collected: 05/26/2020 09:14 Status: Final result Visible to patient: No (not released) Component Final Diagnosis A. SKIN, SCALP, EXCISION: - PILAR CYST (TRICHILEMMAL CYST) B. SKIN, BACK, EXCISION: - EPIDERMAL INCLUSION CYST C. SKIN, NECK, EXCISION: - EPIDERMAL INCLUSION CYST D. SKIN, LEFT, UPPER ARM, EXCISION: - BASAL CELL CARCINOMA, NODULAR TYPE (8 MM IN WIDTH, <1 MM IN DEPTH) - ALL MARGINS ARE NEGATIVE FOR MALIGNANCY E. SKIN, RIGHT, LOWER LEG, EXCISION: - BASAL CELL CARCINOMA, NODULAR TYPE (7 MM IN WIDTH, <1 MM IN DEPTH) - ALL MARGINS ARE NEGATIVE FOR MALIGNANCY F. SOFT TISSUE, RIGHT, LOWER LEG, DEEP MARGIN, EXCISION: - BENIGN ADIPOSE TISSUE (1.5 AND 0.3 MM OF ADDITIONAL MARGIN) Hospital Problem list: Patient Active Problem List Diagnosis Date Noted Obesity (BMI 30-39.9) 05/27/2020 Skin lesion of left upper extremity 05/05/2020 Sebaceous cyst 05/05/2020 Assessment & Plan: Paul Shin is a 44 year old male s/p 05/26 s/p Wide local excision of basal cell carcinoma of theleftupper arm; Wide local excision of potential basal cell carcinoma of the rightlower leg. Excision of cysts of the scalp(x1), posterior neck (x1), left upper back (x1). Path report with free margins of the BCC's. Wound well healed. All but 3 stitches from the leg removed. Placed on Steristrips. Patient was offered to return to clinic next week for removal of those sutures but would like to have his remove it at home to save the trip. We felt this was ok and he will contact us if any issues arise. 1. Follow-up in 4 weeks Patient seen and discussed with faculty, Dr. Trujillo. Zaheer Ram MD General Surgery Resident [facility] Attending Attestation: I personally evaluated and examined the patient on 06/08/[address] Ram's note as written. I actively participated in the decision-making process. Please see the resident's note for additional details. Patient doing well, surgical wounds healing well without signs of infection. Pathology discussed with the patient. Patient's prefers removing remaining sutures from right leg wound and declined appointment for suture removal. Follow up in 4 weeks. Will refer to Dermatology at that time. Gia Trujillo M.D. 06/09/2020 10:57 documented in this encounter Plan of Treatment Date Type Specialty Care Team Description 07/06/2020 Office Visit Surgery Gia Trujillo MD 1260 [facility] [address] [place] [address] [phone] Health Maintenance Due Date Last Done Comments PNEUMOCOCCAL 0-64 YEARS COMBINED SERIES (1 of - 1980 PCV13) DTaP,Tdap,and Td Vaccines (1 - Tdap) 1993 INFLUENZA VACCINE (#1) 2020 Depression Screening 05/26/2021 05/26/2020 Colorectal Cancer Screening 2024 documented as of this encounter Results Not on filedocumented in this encounter Visit Diagnoses Diagnosis Basal cell carcinoma (BCC) of left upper extremity - Primary Basal cell carcinoma of lower extremity, right Pilar cyst Epidermal inclusion cyst Sebaceous cyst Postoperative follow-up Follow-up examination, following unspeci fied surgery documented in this encounter Insurance Payer Benefit Plan / Subscriber ID Effective Dates Phone Addre ss Type Group [facility] [id number] 2020-[place] Medicaid COMM PLAN - t MANAGED MEDICAID documented as of this encounter
--- OUTSIDE RECORDS SUMMARY | 2020-06-19 21:23 | XMS REPORT | Continuity of Care Document ---
:1975 Author Organization [facility] t Address [address] [place] [address] Care Team Providers Name Role Phone Ronnie WU Attending Clinician Problems This patient has no known problems. Allergies, Adverse Reactions, Alerts This patient has no known allergies or adverse reactions. Medications Ordered Filled Start Stop Current Ordering Indication Dosage Frequency Signature Comments Components Source Medication Medication Date Date Medication? Clinician (SIG) Name Name Omeprazole Omeprazole Yes Marga [address] [facility] 2-11 [place] 30 minutes [facility] before [facility] HydrOXYzine HydrOXYzine 2018-07 Yes Marga [address] [facility] HCl HCl 1-01 [place] as needed [facility] Lisinopril Lisinopril 2017-07 Yes Marga [address] [facility] 1[facility]20 [place] [facility] BuPROPion BuPROPion Yes Marga take [address] HCl ER (XL) HCl ER (XL) [place] tablet by [facility] - mouth [facility] Procedures This patient has no known procedures. Encounters Start End Encounter Admission Attending Care Care Encounter Source Date/Time Date/Time Type Type Clinicians Facility Department ID 2020-06-08 2020-06-08 Office MIKAL Trujillo [id number] 09:55:50 11:12:55 Visit Gia Wells [id number] [facility] [id number] [facility] [id number] [address] 2020-05-22 2020-05-22 Outpatient [facility] [id number] [facility] 2020-04-20 2020-04-20 Outpatient [facility] [id number] [facility] 2020-02-20 2020-02-20 [facility] [id number] [facility] 15:32:00 15:32:00 [facility] Medicine Outpati ent Clinics 2020-01-21 2020-01-21 [facility] [id number] 13:39:00 13:39:00 [facility] Medicine Outpati ent Clinics 2020-01-20 2020-01-20 [facility] [id number] 15:00:00 15:00:00 [facility] Medicine Outpati ent Clinics 2019-08-20 2019-08-20 [facility] [id number] [facility] 09[facility]20:00 09:20:00 [facility] Medicine Outpati ent Clinics 2019-06-28 2019-06-28 [facility] [id number] 11:20:00 11:20:00 [facility] Medicine Outpati ent Clinics 2019-05-30 2019-05-30 [facility] [id number] 10:20:00 10:20:00 [facility] Medicine Outpati ent Clinics 2019-05-08 2019-05-08 [facility] [id number] 13:20:00 13:20:00 [facility] Medicine Outpati ent Clinics Results This patient has no known results.
--- OUTSIDE RECORDS SUMMARY | 2020-06-19 21:23 | XMS REPORT ---
:1975 Author Organization [facility] Address [address] [place] [address] Care Team Providers Name Role Phone Grace Unavailable [phone] PROBLEMS Type Condition ICD9-CM QNY08-TU Onset Condition SNOMED Code Notes Code Code Dates Status Problem Fever, unspecified R50.9 Active 624349073 fever cause Problem Bipolar depression F31.9 Active 942480346 Problem History of kidney Z87.442 Active 428913694 stones Problem Essential hypertension I10 Active 07835065 Problem Gastroesophageal reflux K21.9 Active 94736367 9 disease, esophagitis presence not specified Problem Periodontal disease K05.6 Active 7387048 Problem Unrefreshed by sleep G47.8 Active 758990785 Problem Attention deficit F98.8 Active 209827431 disorder, unspecified hyperactivity presence Problem Pure E78.00 Active 270203266 hypercholesterolemia Problem Depression with anxiety F41.8 Active 87349326 6 Problem GORDO (obstructive sleep G47.33 Active 97322574 apnea) Problem Anxiety F41.9 Active 78475432 ALLERGIES Allergen (clinical Drug/Non Drug Reaction Allergy Type Onset Date S tatus drug ingredient) Allergy documented on EMR PCN anaphylaxis Drug Allergy Inactive ENCOUNTERS from 1975 to 2020-06-07 Encounter Location Date Provider Diagnosis [facility] [address] [place], Marga Mason Essential hypertension [address] ; Depression wi th anxiety Medicine [place], [place] F41.8 and Pure [address] hypercholestero lemia E78.00 IMMUNIZATIONS No Information SOCIAL HISTORY Tobacco Use: [...] REASON FOR REFERRAL No Information VITAL SIGNS Height 71 in May, Weight 275 lbs May, Temperature 98.5 degrees Fahrenheit May, BMI 38.35 kg/m2 May, Oximetry 96 % May, Blood pressure systolic 138 mm Hg May, Blood pressure diastolic 88 mm Hg May, MEDICATIONS Medication SIG (Take, Route, Notes Start Date End Date Status Frequency, Duration) Lisinopril 20 MG 1 tablet Orally Twice a 20 May, 2018 Active day for 90 days BuPROPion HCl ER (XL) 300 take 1 tablet by mouth Active MG every day Oral Once a day for 90 days Omeprazole 40 MG 1 capsule 30 minutes Aug, Active before morning meal Orally Once a day for 90 days HydrOXYzine HCl 50 MG 1 tablet as needed May, Active Orally every 8 hrs for 90 days PROCEDURES No Information RESULTS No Results REASON FOR VISIT f/u-BP check MEDICAL (GENERAL) HISTORY Type Description Date Medical History Essential hypertension Medical History Attention deficit disorder, unspecified hyperactivity presence Medical History Depression with anxiety Medical History History of kidney stones Surgical History No Surgical history information Goals Section No Information Health Concerns No Information MEDICAL EQUIPMENT No Information MENTAL STATUS No Information FUNCTIONAL STATUS No Information ASSESSMENTS Encounter Date Diagnosis Assessment Notes Treatment Treatment Notes Clinical Notes May, Essential hypertension Med as (ICD-10 - I10) directed check daily May, Depression with anxiety take med as (ICD-10 - F41.8) directed May, Pure hypercholesterolemia med s directed (ICD-10 - E78.00) low fat diet PLAN OF TREATMENT Treatment Notes Assessment Notes Clinical Notes Essential hypertension Med as directedcheck daily Depression with anxiety take med as directed Pure hypercholesterolemia med s directedlow fat diet Next Appt Details 3 Months Reason: Provider Name:Marga Edwards, 2020-08-24 10 :00:00 AM, [address] [facility], [address], [place], [address], Insurance Providers Payer Name Payer Payer Insured Patient Coverage Coverage Address Phone Name Relationship to Start Date End Date Insured MEDICAID [phone] Paul Shin [id number] [facility] [id number] [place] [phone] Paul Shin [place] [address] [address] [facility] [address]
--- OUTSIDE RECORDS SUMMARY | 2020-06-19 21:23 | XMS REPORT | Summary of Care ---
:[address] [facility] - [facility] Address [address] [place] [address] Care Team Providers Name Role Phone Marga Edwards Primary Care Provider Reason for Visit Reason Comments Refill Request Encounter Details Date Type Department Care Team Description 05/28/2020 Refill [facility] General Surgery- Gia Harrison MD Refill Request [address] [place] [address] [place] [address] [phone] Allergies Active Allergy Reactions Severity Noted Date Comments Penicillins Anaphylaxis 04/28/2020 documented as of this encounter (statuses as of 06/02/2020) Medications Medication Sig Dispensed Refills Start Date End Date Status hydrOXYzine 50 mg 0 04/20/2020 A ctive tablet buPROPion XL 300 mg 0 04/20/2020 Active 24 hr tablet omeprazole 40 mg 0 04/20/2020 Ac tive capsule lisinopriL 40 mg Take 40 mg 0 Ac tive tablet by mouth daily. acetaminophen Take 1 30 tablet 0 06/02/2020 Activ e (TYLENOL EXTRA tablet by STRENGTH) 500 mg mouth every tabletIndications: 6 (six) Skin lesion of left hours as upper extremity needed for Pain. traMADoL 50 mg Take 1 6 tablet 0 06/02/2020 Acti ve tabletIndications: tablet by acute pain mouth every 6 (six) hours as needed for Pain (scale 7-10). Indications: acute pain acetaminophen Take 1 30 tablet 0 05/26/2020 Disco ntinued (TYLENOL EXTRA tablet by 0 (Reor anamaria) STRENGTH) 500 mg mouth every tabletIndications: 6 (six) Skin lesion of left hours as upper extremity needed for Pain. traMADoL 50 mg Take 1 6 tablet 0 05/26/2020 Disc ontinued tabletIndications: tablet by 0 ( Reorder) acute pain mouth every 6 (six) hours as needed for Pain (scale 7-10) for up to 7 days. Indications: acute pain documented as of this encounter (statuses as of 06/02/2020) Active Problems Problem Noted Date Obesity (BMI 30-39.9) 05/27/2020 Skin lesion of left upper extremity 05/05/2020 Overview: Added automatically from request for jermaine avril [id number] Sebaceous cyst 05/05/2020 Overview: Added automatically from request for jermaine avril [id number] documented as of this encounter (statuses as of 06/02/2020) Social History Tobacco Use Types Packs/Day Years Used Date Never Smoker Smokeless Tobacco: Current User Sex Assigned at Date Recorded Not on file COVID-19 Exposure Response Date Recorded In the last month, have you been in contact with No / Unsure 05/25/2020 12:55 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 documented as of this encounter Last Filed Vital Signs Not on filedocumented in this encounter Plan of Treatment Date Type Specialty Care Team Description 06/08/2020 Office Visit Surgery Gia Trujillo MD 2[address] [facility] [address] [place] [address] [phone] Health Maintenance Due Date Last Done Comments PNEUMOCOCCAL 0-64 YEARS COMBINED SERIES (1 of 3 - 1980 PCV13) DTaP,Tdap,and Td Vaccines (1 - Tdap) 1993 INFLUENZA VACCINE (#1) 2020 Depression Screening 05/26/2021 05/26/2020 Colorectal Cancer Screening 2024 documented as of this encounter Results Not on filedocumented in this encounter Visit Diagnoses Diagnosis Skin lesion of left upper extremity documented in this encounter Insurance Payer Benefit Plan / Subscriber ID Effective Dates Phone Addre ss Type Group [facility] [id number] 2020-[facility] Medicaid COMM PLAN - t MANAGED MEDICAID documented as of this encounter
--- OUTSIDE RECORDS SUMMARY | 2020-06-19 21:24 | XMS REPORT | Summary of Care ---
:1975 Author Organization [facility] Address [address] [place] [address] Care Team Providers Name Role Phone Marga Edwards Primary Care Provider Reason for Visit Reason Comments Follow-up mass excision Other (Routine) Status Reason Specialty Diagnoses / Referred By Referred To Procedures Contact Contact Authorized Surgery Diagnoses Skin lesion of left upper extremity Gia Trujillo, Gia Trujillo, Procedures Discharge Follow-up: Specialty Provider GIA TRUJILLO; Other - See Comment (06/08/2020) MD WU 2240 [facility] 2[address] [facility] [address] [place] [address] Phone: Fax: Encounter Details Date Type Department Care Team Description 06/08/2020 Office Visit [facility] General Gia Trujillo Bas al cell carcinoma (BCC) of left upper extremity (Primary Dx); Surgery- Russell WU Basal cell carcinoma of lower extremity, right; [address] [place], [place] [address]iv e 2240 [facility] Pilar cyst; [address] [place] [address] Epidermal inclusion cyst; [place], [place] [address] Postoperative follow-up [address] [place], [place] [phone] [address] Allergies Active Allergy Reactions Severity Noted [...] Added automatically from request for jermaine avril [id number] Sebaceous cyst 05/05/2020 Overview: Added automatically from request for jermaine avril [id number] documented as of this encounter (statuses as of 06/09/2020) Social History Tobacco Use Types Packs/Day Years Used Date Never Smoker Smokeless Tobacco: Current User Alcohol Use Drinks/Week oz/Week Comments Yes Sex Assigned at Date Recorded Not on file COVID-19 Exposure Response Date Recorded In the last month, have you been in contact with No / Unsure 06/08/2020 9:55 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 documented as of this encounter Last Filed Vital Signs Vital Sign Reading Time Taken Comments Blood Pressure 134/88 06/08/2020 10:29 AM PRINCIPAL HARDWARE ARCHITECT Pulse 78 06/08/2020 10:29 AM PRINCIPAL HARDWARE ARCHITECT Temperature - - Respiratory Rate 16 06/08/2020 10:29 AM PRINCIPAL HARDWARE ARCHITECT Oxygen Saturation - - Inhaled Oxygen Concentration - - Weight 124.9 kg (275 lb 6.4 oz) 06/08/2020 10:29 AM PRINCIPAL HARDWARE ARCHITECT Height 182.9 cm (6') 06/08/2020 10:29 AM PRINCIPAL HARDWARE ARCHITECT Body Mass Index 37.35 06/08/2020 10:29 AM PRINCIPAL HARDWARE ARCHITECT documented in this encounter Progress Notes Zaheer Armijo MD - 06/08/2020 10:00 AM CST [facility] Surgery Clinic Note 06/08/20 Chief Complaint: follow-up [...] N/A 05/26/2020 Surgeon: Gia Trujillo MD; [place] [facility] [place] History: No family history on file. [...] file Gets together: Not on file Attends scientology service: Not on file Active member of [...] Trujillo. Zaheer Ram MD General Surgery Resident [facility] Attending Attestation: I personally evaluated [...] 07/06/2020 Office Visit Surgery Gia Trujillo MD [address] [facility] [address] [place] [address] [phone] Health Maintenance Due Date Last Done Comments [...] Effective Dates Phone Addre ss Type Group [facility] [id number] 2020-[employer] Medicaid COMM PLAN - t MANAGED MEDICAID documented as of this encounter
--- NOTE | 2020-06-19 22:46 | ER ---
Nurse's Notes [facility] Name: Paul Shin Age: 44 yrs Sex: Male : 1975 Arrival Date: 06/19/2020 Time: 21:19 Bed 3 Private MD: Marga Edwards Diagnosis: Cellulitis of back [any part except buttock];Cellulitis of right lower limb Presentation: 06/19 22:18 Chief complaint: Patient states: surgery almost 4 weeks ago, wound on back and right dm5 leg "opened" back up today. Purulent drainage noted from both wounds. Leg wound still has stitches in it. Coronavirus screen: Client denies travel out of the [place] in the last 14 days. At this time, the client does not indicate any symptoms associated with coronavirus-19. Ebola Screen: Patient negative for fever greater than or equal to 101.5 degrees Fahrenheit, and additional compatible Ebola Virus Disease symptoms Patient denies exposure to infectious person. Patient denies travel to an Ebola-affected area in the 21 days before illness onset. No symptoms or risks identified at this time. Initial Sepsis Screen: Does the patient meet any 2 criteria? No. Patient's initial sepsis screen is negative. Does the patient have a suspected source of infection? Yes: Skin breakdown/wound. Risk Assessment: Do you want to hurt yourself or someone else? Patient reports no desire to harm self or others. Onset of symptoms was June 19, 2020. 22:18 Method Of Arrival: Ambulatory dm5 22:18 Acuity: RANDY 4 dm5 Triage Assessment: 22:20 General: Appears in no apparent distress. Behavior is calm, cooperative. Pain: dm5 Complains of pain in lateral proximal right calf. Neuro: Level of Consciousness is awake, alert, obeys commands, Oriented to person, place, time, situation. Respiratory: Airway is patent Respiratory effort is even, unlabored, relaxed. Derm: Wound noted left scapular area and right calf. Historical: - Allergies: 22:20 PENICILLINS; dm5 - Home Meds: 22:24 lisinopril 40 mg Oral tab 1 tab once daily [Active]; bupropion HCl 300 mg Oral Tb24 1 dm5 tab once daily [Active]; Hydroxyzine Oral [Active]; omeprazole 40 mg Oral cpDR 1 cap once daily [Active]; - PMHx: 22:24 GERD; Anxiety; ADD/ADHD; Hypertension; dm5 - PSHx: 22:24 skin cancer removal; cyst removal - multiple; dm5 Screenin:00 Abuse screen: Denies threats or abuse. Nutritional screening: No deficits noted. jb4 Tuberculosis screening: No symptoms or risk factors identified. Fall Risk None identified. Assessment: 22:00 General: Appears in no apparent distress. comfortable, Behavior is calm, cooperative, jb4 appropriate for age. Pain: Complains of pain in back and lateral aspect of right knee Pain does not radiate. Pain currently is 5 out of 10 on a pain scale. Neuro: Level of Consciousness is awake, alert, obeys commands, Oriented to person, place, time, situation. Cardiovascular: Patient's skin is warm and dry. Respiratory: Airway is patent Respiratory effort is even, unlabored, Respiratory pattern is regular, symmetrical. GI: No signs and/or symptoms were reported involving the gastrointestinal system. : EENT: No signs and/or symptoms were reported regarding the EENT system. Derm: Skin is intact, Skin is pink, warm \\T\\ dry. Musculoskeletal: Circulation, motion, and sensation intact. Range of motion: intact in all extremities. 22:55 Reassessment: Dr. Reed at bedside for suture removal. lp1 23:05 Reassessment: Patient appears in no apparent distress at this time. Patient and/or jb4 family updated on plan of care and expected duration. Pain level reassessed. Patient is alert, oriented x 3, equal unlabored respirations, skin warm/dry/pink. Vital Signs: 22:18 Pulse 92; Resp 20; Temp 97.8; Pulse Ox 95% on R/A; Weight 123.38 kg; Height 6 ft. 0 in. dm5 (182.88 cm); 22:45 BP 158 / 113; Pulse 73; Resp 16; Pulse Ox 96% on R/A; jb4 22:18 Body Mass Index 36.89 (123.38 kg, 182.88 cm) dm5 ED Course: 21:19 Patient arrived in ED. am2 21:20 Marga Edwards FNP-C is Private Physician. am2 22:00 Patient has correct armband on for positive identification. Bed in low position. Call jb4 light in reach. Side rails up X 1. 22:03 Richie Mays, RN is Primary Nurse. jb4 22:12 Jay Reed MD is Attending Physician. tw4 22:20 Triage completed. dm5 23:07 No provider procedures requiring assistance completed. Patient did not have IV access jb4 during this emergency room visit. Administered Medications: 22:47 Drug: Cleocin 600 mg Route: IM; Site: right gluteus; jb4 23:09 Follow up: Response: No adverse reaction jb4 22:47 Drug: [place] 5 mg-325 mg 1 tabs Route: PO; jb4 23:08 Follow up: Response: No adverse reaction; Pain is decreased; RASS: Alert and Calm (0) jb4 Outcome: 22:46 Discharge ordered by . tw4 23:07 Discharged to home ambulatory. jb4 23:07 Condition: stable 23:07 Discharge instructions given to patient, Instructed on discharge instructions, follow up and referral plans. medication usage, Demonstrated understanding of instructions, follow-up care, medications, Prescriptions given X 2. 23:09 Patient left the ED. jb4 Signatures: Dian Mcneal, RN RN dm5 Ange Chavis RN RN lp1 Richie Mays, RN RN jb4 Nai Campa am2 Jay Reed MD MD tw4
--- NOTE | 2020-06-19 22:46 | EDPHYS ---
Physician Documentation [facility] Name: Paul Shin Age: 44 yrs Sex: Male : 1975 Arrival Date: 06/19/2020 Time: 21:19 Bed 3 Private MD: Marga Edwards ED Physician Jay Reed HPI: 06/20 06:15 This 44 yrs old Male presents to ER via Ambulatory with complaints of Wound tw4 Check - reopened. 06:15 Patient presents to ED for recheck of: skin cancer removal. The affected area is on the tw4 lateral aspect of right calf. Previous treatment: The patient was initially treated. Previous treatment: The patient was initially treated on May 28, 2020. Progress: The patient reports decreased redness. The patient has not experienced similar symptoms in the past. Historical: - Allergies: 06/19 22:20 PENICILLINS; dm5 - Home Meds: 22:24 lisinopril 40 mg Oral tab 1 tab once daily [Active]; bupropion HCl 300 mg Oral Tb24 1 dm5 tab once daily [Active]; Hydroxyzine Oral [Active]; omeprazole 40 mg Oral cpDR 1 cap once daily [Active]; - PMHx: 22:24 GERD; Anxiety; ADD/ADHD; Hypertension; dm5 - PSHx: 22:24 skin cancer removal; cyst removal - multiple; dm5 ROS: 06/20 06:15 Cardiovascular: Negative for chest pain, palpitations, and edema, Respiratory: Negative tw4 for shortness of breath, cough, wheezing, and pleuritic chest pain, Abdomen/GI: Negative for abdominal pain, nausea, vomiting, diarrhea, and constipation, Back: Negative for injury and pain, Neuro: Negative for headache, weakness, numbness, tingling, and seizure. Skin: Positive for erythema, Negative for abrasions, abscesses, avulsion, burn, cellulitis, diaphoresis, discoloration, ecchymosis, lesions, pallor, puncture, rash. Exam: 06:17 Constitutional: This is a well developed, well nourished patient who is awake, alert, tw4 and in no acute distress. Head/Face: Normocephalic, atraumatic. Chest/axilla: Normal chest wall appearance and motion. Nontender with no deformity. No lesions are appreciated. Cardiovascular: Regular rate and rhythm with a normal S1 and S2. No gallops, murmurs, or rubs. Normal PMI, no JVD. No pulse deficits. Respiratory: Lungs have equal breath sounds bilaterally, clear to auscultation and percussion. No rales, rhonchi or wheezes noted. No increased work of breathing, no retractions or nasal flaring. 06:17 Skin: Wound recheck: Suture laceration closure: moderate drainage, moderate erythema, moderate swelling. Vital Signs: 06/19 22:18 Pulse 92; Resp 20; Temp 97.8; Pulse Ox 95% on R/A; Weight 123.38 kg; Height 6 ft. 0 in. dm5 (182.88 cm); 22:45 BP 158 / 113; Pulse 73; Resp 16; Pulse Ox 96% on R/A; jb4 22:18 Body Mass Index 36.89 (123.38 kg, 182.88 cm) dm5 MDM: 22:12 Patient medically screened. tw4 06/20 06:17 Differential diagnosis: cellulitis. Data reviewed: vital signs, nurses notes. Data tw4 interpreted: Pulse oximetry: Interpretation: normal. Counseling: I had a detailed discussion with the patient and/or guardian regarding: the historical points, exam findings, and any diagnostic results supporting the discharge/admit diagnosis. Special discussion: I discussed with the patient/guardian in detail that at this point there is no indication for admission to the hospital. It is understood, however, that if the symptoms persist or worsen the patient needs to return immediately for re-evaluation. 06/19 22:18 Order name: Wound Culture tw4 Administered Medications: 06/19 22:47 Drug: Cleocin 600 mg Route: IM; Site: right gluteus; jb4 23:09 Follow up: Response: No adverse reaction jb4 22:47 Drug: [place] 5 mg-325 mg 1 tabs Route: PO; jb4 23:08 Follow up: Response: No adverse reaction; Pain is decreased; RASS: Alert and Calm (0) jb4 Disposition: 06/19/20 22:46 Discharged to Home. Impression: Cellulitis of back [any part except buttock], Cellulitis of right lower limb. - Condition is Stable. - Discharge Instructions: Cellulitis, Adult. - Prescriptions for Cleocin 300 mg Oral Capsule - take 1 capsule by ORAL route every 6 hours for 10 days; 40 capsule. Tylenol- Codeine #3 300-30 mg Oral Tablet - take 2 tablet by ORAL route every 6 hours As needed; 6 tablet. - Work release form, Medication Reconciliation Form, Thank You Letter, Antibiotic Education, Prescription Opioid Use form. - Follow up: Private Physician; When: Upon discharge from the Emergency Department; Reason: Recheck today's complaints, Continuance of care, Re-evaluation by your physician. - Problem is new. - Symptoms have improved. Signatures: Dispatcher [employer] Dian Beauchamp RN RN dm5 Richie Mays RN RN jb4 Jay Reed MD MD tw4 Corrections: (The following items were deleted from the chart) 23:09 22:46 06/19/2020 22:46 Discharged to Home. Impression: Cellulitis of back [any part jb4 except buttock]; Cellulitis of right lower limb. Condition is Stable. Forms are Medication Reconciliation Form, Thank You Letter, Antibiotic Education, Prescription Opioid Use. Follow up: Private Physician; When: Upon discharge from the Emergency Department; Reason: Recheck today's complaints, Continuance of care, Re-evaluation by your physician. Problem is new. Symptoms have improved. tw4
[2020-06-19] MEDS ORDERED: CLINDAMYCIN IV 150 MG/ML (4 mL) VIAL ONE (22:50)
[2020-06-19] MEDS ORDERED: HYDROCODONE/APAP 5/325 MG TAB ONE (22:50)
[2020-06-24 10:26] VITALS: BP 158/113; O2SAT 96
[2020-06-24 10:27] VITALS: TEMP 97.8
== END 2020-06-19 23:09 | disposition home or self-care (01) ==
LOC: ER 21:17
DX: L03.115 Cellulitis of right lower limb (principal); L03.312 Cellulitis of back [any part except buttock and flank]; Z98.890 Other specified postprocedural states; I10 Essential (primary) hypertension; F41.9 Anxiety disorder, unspecified; Z88.0 Allergy status to penicillin
CPT/HCPCS: 87070; 87205; 96372; 99283; S0077